=== PATIENT | male | born 1970 | race Asian ===

== ENCOUNTER 2025-04-04 09:17 | Outpatient (CLI) | payer OTHER ==
[2025-04-04 09:54] LABS: LEUKOCYTE ESTERASE ,URINE TRACE (Neg); NITRITES, URINE NEGATIVE (Neg); OCCULT BLOOD,URINE NEGATIVE (Neg)
[2025-04-04 09:59] LABS: UA COLLECTION TYPE CLN CATCH MIDSTREAM
[2025-04-04 10:00] LABS: SQUAMOUS EPITHELIAL CELL,UR FEW /LPF (FEW)
[2025-04-04 10:01] LABS: AMORPHOUS URATES 1+
[2025-04-04 10:06] LABS: RENAL CELLS, URINE FEW /HPF
[2025-04-04 10:11] LABS: MEAN PLATELET VOLUME 7.9 FL (7.4-10.4); RED CELL DISTRIBUTION WIDTH 13.9 % (11.5-14.5)
[2025-04-04 10:21] LABS: CHOL/HDL RATIO 5.9 (0.00-4.99); CREATININE 0.98 MG/DL (0.60-1.10); LDL CHOLESTEROL 144 MG/DL (50-100); TOTAL CARBON DIOXIDE 32.9 MMOL/L (24-32); eGFR 79 ML/MIN
== END 2025-04-04 23:59 | disposition home or self-care (01) ==
LOC: LAB 09:17
PROVIDERS: ATTEND Nurse Practitioner Family
DX: I10 Essential (primary) hypertension (principal); R35.1 Nocturia; R53.83 Other fatigue; G47.33 Obstructive sleep apnea (adult) (pediatric); Z76.89 Persons encountering health services in other specified circumstances; Z87.81 Personal history of (healed) traumatic fracture; R53.1 Weakness
CPT/HCPCS: 36415; 80053; 80061; 81001; 83036; 84153; 84439; 84443; 84550; 85025; 87088

== ENCOUNTER 2025-04-07 11:00 | Outpatient (CLI) | payer OTHER ==
[2025-04-13 05:14] LABS: ATYPICAL PANCA <1:20 titer (Neg:<1:20); CYTOPLASMIC (C-ANCA) <1:20 titer (Neg:<1:20); PERINUCLEAR (P-ANCA) <1:20 titer (Neg:<1:20)
== END 2025-04-07 23:59 | disposition home or self-care (01) ==
LOC: RAD 11:00
PROVIDERS: ATTEND Family Medicine
DX: R21 Rash and other nonspecific skin eruption (principal)
CPT/HCPCS: 36415; 85651; 86256

== ENCOUNTER 2025-09-08 08:46 | Outpatient (CLI) | payer OTHER ==
[2025-09-08 09:16] LABS: MEAN PLATELET VOLUME 8.0 FL (7.4-10.4); RED CELL DISTRIBUTION WIDTH 13.3 % (11.5-14.5)
[2025-09-08 09:41] LABS: CHOL/HDL RATIO 5.2 (0.00-4.99); CREATININE 0.96 MG/DL (0.60-1.10); LDL CHOLESTEROL 125 MG/DL (50-100); TOTAL CARBON DIOXIDE 32.0 MMOL/L (24-32); eGFR 81 ML/MIN
== END 2025-09-08 23:59 | disposition home or self-care (01) ==
LOC: RAD 08:46
PROVIDERS: ATTEND Student in an Organized Health Care Education/Training Program
DX: E55.9 Vitamin D deficiency, unspecified (principal); R07.89 Other chest pain; R53.83 Other fatigue
CPT/HCPCS: 36415; 80053; 80061; 82306; 82607; 82746; 83036; 84439; 84443; 85025